=== PATIENT | female | born 1950 | race Caucasian/White ===

== ENCOUNTER 2016-09-25 09:51 | Emergency (ER) | payer BC ==
[2016-09-25 10:51] LABS: Hematocrit 38 % (35-47); Hemoglobin 13.1 g/dl (12.0-16.0); Mean Corpuscular HGB Conc 34 g/dl (31-36); Mean Corpuscular Hemoglobin 33 pg (27-31); Mean Corpuscular Volume 96 fL (80-97); Mean Platelet Volume 9 um3 (7.4-10.4); Red Blood Count 3.98 10^6/ul (4.0-5.4); Red Cell Distribution Width 13 % (10.5-15); White Blood Count 5.7 10^3/ul (3.5-10.8)
[2016-09-25 11:14] LABS: Albumin 3.9 g/dL (3.2-5.2); BUN/Creatinine Ratio 23.8 (8-20); C Reactive Protein 1.36 mg/L (< 5.00); Calcium 9.6 mg/dL (8.6-10.3); EGFR African American 91.7 (>60); EGFR Non-African American 71.3 (>60); Globulin 3.5 g/dL (2-4); Potassium 3.7 mmol/L (3.5-5.0); Total Bilirubin 0.4 mg/dL (0.2-1.0); Total Protein 7.4 g/dL (6.4-8.9)
--- NOTE | 2016-09-25 11:22 | RAD ---
Indication: Right flank pain. CT of the abdomen and pelvis was performed without oral or IV contrast. Coronal and sagittal reconstructed images were obtained. Fullness of the right renal collecting system is noted. Prominent right ureter is noted. There is a tiny calcification at the right ureterovesicular junction measuring 1 to 2 mm. The left kidney also demonstrates some mild fullness however No hydroureter is noted. The lung bases demonstrate no pleural fluid, nodules or masses. Heart is of normal size without evidence of pericardial effusion. Liver is normal in size. No focal lesions or intrahepatic biliary duct dilatation is noted. The common duct measures 9 mm likely due to postcholecystectomy state of the patient. Patient is status post cholecystectomy. The spleen is normal in size. No adrenal lesions are noted. No retroperitoneal adenopathy is noted. CT of the pelvis demonstrates no retroperitoneal or pelvic lymphadenopathy. Stool is present throughout the colon. The appendix is normal. No hernias are noted. IMPRESSION: Fullness of the right renal collecting system with a 1 to 2 mm calculus at the right ureterovesicular junction.
[2016-09-25 11:50] LABS: Urine Bacteria Absent (Absent); Urine Bilirubin Negative (Negative); Urine Glucose Negative (Negative); Urine Nitrite Negative (Negative)
--- NOTE | 2016-09-25 12:37 | ED ---
Erma Tong Matthew, scribed for Tone Kaplan MD on 09/25/16 at 1024 . Abdominal Pain/Female - HPI Summary HPI Summary: A 66 y/o female presents to the ED with gradually worsening, constant right flank pain since 09:00 today that relieved on the way to the hospital. The pain was rated 7/10 in severity and did not radiate. While urinating today, the patient stated she had less output then usual. Associated symptoms when the patient had pain include nausea and diaphoresis. She denies vomiting. Currently , the patient does not have anymore pain or associated symptoms. She had a BM this morning. - History of Current Complaint Chief Complaint: EDFlankPain Stated Complaint: BACK PAIN Time Seen by Provider: 09/25/16 10:14 Hx Obtained From: Patient ?: No Onset/Duration: Sudden Onset, Lasting Hours, Resolved Timing: Constant Severity Initially: Moderate Severity Currently: None Pain Intensity: 0 Pain Scale Used: 0-10 Numeric Location: Flank - RT Character: Sharp Associated Signs and Symptoms: Positive: Diaphoresis - since resolved, Urinary Symptoms - Slight decreased in urinary output, Nausea - since resolved Allergies/Adverse Reactions: Allergies Allergy/AdvReac Type Severity Reaction Status Date / Time No Known Allergies Allergy Verified 11/23/13 10:15 PMH/Surg Hx/FS Hx/Imm Hx Previously Healthy: No Respiratory History: Reports: Other Respiratory Problems/Disorders - DX PNEUMONIA 07.12.2014 Musculoskeletal History: Denies: Hx Osteoporosis - Cancer History Hx Chemotherapy: No Hx Radiation Therapy: No - Surgical History Surgery Procedure, Year, and Place: GB REMOVED Infectious Disease History: No Infectious Disease History: Reports: Hx Shingles Denies: Traveled Outside the [place] in Last 30 Days - Family History Family History: FHx of [place] - Social History Alcohol Use: None Substance Use Type: Reports: None Smoking Status (MU): Never Smoked Tobacco Review of Systems Positive: Skin Diaphoresis - since resolved Eyes: Negative ENT: Negative Cardiovascular: Negative Respiratory: Negative Positive: Abdominal Pain - right flank - since resolved, Nausea - since resolved Genitourinary: Negative Musculoskeletal: Negative Skin: Negative Neurological: Negative Psychological: Normal All Other Systems Reviewed And Are Negative: Yes Physical Exam - Summary Physical Exam Summary: VITAL SIGNS: Reviewed. GENERAL: Patient is a well developed and nourished female who is lying comfortable in the stretcher. Patient is not in any acute respiratory distress. HEAD AND FACE: Normocephalic and atraumatic. EYES: PERRLA, EOMI x 2, No injected conjunctiva. EARS: Hearing grossly intact. Ear canals and tympanic membranes are WNL. MOUTH: Oropharynx within normal limits. NECK: Supple, trachea is midline, no adenopathy, no JVD. CHEST: Symmetric, no tenderness at palpation LUNGS: Clear to auscultation bilaterally. No wheezing or crackles. CVS: RRR,, S1 and S2 present, no murmurs or gallops appreciated. ABDOMEN: Soft, non-tender. No signs of distention. Positive bowel sounds. No rebound no guarding, and no masses palpated. No abdominal bruit or pulsations. Positive right CVAT's EXTREMITIES: FROM in all major joints, no edema, no cyanosis or clubbing. NEURO: Alert and oriented x 3. No acute neurological deficits. Speech is normal. SKIN: Dry and warm Triage Information Reviewed: Yes Vital Signs On Initial Exam: Initial Vitals Temp Pulse Resp BP Pulse Ox 97.7 F 67 18 137/79 96 09/25/16 09:53 09/25/16 09:53 09/25/16 09:53 09/25/16 09:53 09/25/16 09:53 Vital Signs Reviewed: Yes - Alena Coma Scale Coma Scale Total: 15 Diagnostics - Vital Signs Vital Signs Temp Pulse Resp BP Pulse Ox 09/25/16 10:00 98.8 F 63 18 143/73 95 09/25/16 09:53 97.7 F 67 18 137/79 96 - Laboratory Result Diagrams: 09/25/16 10:30 09/25/16 10:30 Lab Statement: Any lab studies that have been ordered have been reviewed, and results considered in the medical decision making process. - CT A/P CT Interpretation: Positive (See Comments) - IMPRESSION: Fullness of the right renal collecting system with a 1 to 2 mm calculus at the right ureterovesicular junction. CT Interpretation Completed By: Radiologist Abdominal Pain Fem Course/Dx - Course Course Of Treatment: A 66 y/o female presents to the ED with gradually worsening , constant right flank pain since 09:00 today that relieved on the way to the hospital. The pain was rated 7/10 in severity and did not radiate. While urinating today, the patient stated she had less output than usual. Associated symptoms when the patient had pain include nausea and diaphoresis. She denies vomiting. Currently, the patient does not have any more pain or associated symptoms. She had a BM this morning. Blood work WNL, urinalysis shows no UTI. A/P CT shows 1-2mm kidney stone. In the ED course, the patient was given IV fluids. She did not require anything for pain. At this point the patient continues to be asymptomatic. Therefore she will be discharged home. Th patient was counseled to return to the ED if she develops increase in pain, nausea, vomiting, or fever. The patient understands and agrees. - Diagnoses Differential Diagnosis: Positive: Appendicitis, Constipation, Diverticulitis, Renal Colic, Urinary Tract Infection Provider Diagnoses: Ureter colic, Kidney stone on right side Discharge - Discharge Plan Condition: Stable Disposition: HOME Prescriptions: Naproxen TAB* [Naprosyn TAB*] 500 mg PO Q8H PRN #20 tab PRN Reason: Pain Naproxen TAB* [Naprosyn TAB*] 375 mg PO BID PRN #20 tab PRN Reason: Pain Patient Education Materials: Naproxen (By mouth), Kidney Stones (ED) Referrals: Morena Christopher NP [Primary Care Provider] - 3 Days Additional Instructions: Please follow-up with your primary care physician. The documentation as recorded by the Erma aponte Matthew accurately reflects the service I personally performed and the decisions made by , Tone Kaplan MD.
[2016-09-25 13:22] VITALS: BP 99/48
== END 2016-09-25 13:21 | disposition home or self-care (01) ==
LOC: ED 09:51
DX: N23 Unspecified renal colic (principal); N20.0 Calculus of kidney; R10.84 Generalized abdominal pain; R11.0 Nausea
CPT/HCPCS: 36415; 74176; 80053; 81003; 81015; 82150; 83605; 83690; 83880; 85025; 86140; 99283

== ENCOUNTER → 2016-11-05 06:30 | Day surgery (SDC) | payer BC ==
[~2016-11-05 06:30] MED LIST: Acetaminophen TAB* 325 MG PO PRN; Buffered Lidocaine 1% SYRIN* 3 ML/SYR SYRINGE INTRADERM ONE; Bupivacaine 0.5% SDV PF* 30 ML VIAL ONE; Dexamethasone IV* 4 MG/ML 1 ML (4 MG) ONE; DiMENhydriNATE IV* 50 MG/ML VIAL IV PUSH PRN; Famotidine IV* 10 MG/ML 2 ML (20 mg) ONE; HYDROcodone/ACETAMIN 5-325 MG* 1 TAB PO PRN; HYDROmorphone* 1 MG/ML 1 ML SYR IV PRN; KETAMINE HCL* 50 MG/ML 10 ML VIAL ONE; Ketorolac INJ* 30 MG/ML 1 ML VIAL ONE; Lidocaine 1% INJ* 10 MG/ML 30 ML SDV ONE; Lidocaine 2% PF* 5 ML VIAL ONE; Midazolam* 1 MG/ML 2 ML VIAL (2 MG) ONE; Ondansetron INJ* 2 MG/ML VIAL IV PRN; PROCHLORPERAZINE INJ 5 MG/ML 2 ML VIAL IV PRN; Propofol* 10 MG/ML 20 ML BTL IV PUSH ONE; ceFAZolin 2 GM PREMIX(*) 2 GM/50 ML BAG IVPB ONE; fentaNYL* 50 MCG/ML 2 ML VIAL (100 MCG VIAL) ONE
[2016-11-05 09:12] VITALS: BP 147/81
--- NOTE | 2016-11-06 01:06 | OP ---
DATE OF OPERATION: 11/05/16 - [facility] DATE OF : 46 SURGEON: Von Nolan DPM REAL ESTATE LEGAL ASSISTANT: None. ANESTHESIOLOGIST: Dr. Gordon ANESTHESIA: MAC with local. PRE-OP DIAGNOSIS: Painful hallux rigidus, right foot. POST-OP DIAGNOSIS: Painful hallux rigidus, right foot. OPERATIVE PROCEDURE: Cheilectomy with right great toe joint. PATHOLOGY: Degenerated bone. HEMOSTASIS: Pneumatic ankle tourniquet. ESTIMATED BLOOD LOSS: Less than 5 cc. INDICATIONS: The patient with chronic and progressive pain, stiffness, and osteophyte proliferation about the right great toe making painful to walk and wear shoes. DESCRIPTION OF PROCEDURE: The patient was brought to the operating room, placed on the operating room table in the supine position. The anesthesia department administered IV sedation and a peripheral nerve block was performed about the right forefoot with a 1:1 mixture of 1% lidocaine plain and 0.5% Marcaine plain. The right foot was prepped and draped in the usual fashion. The right foot was then exsanguinated with an Esmarch bandage and the pneumatic ankle tourniquet was inflated to 250 mmHg about a well-padded right ankle. Attention was directed to the dorsal medial aspect of the right great toe joint , where a linear incision was made. The incision was deepened through subcutaneous tissue with care being taken to retract neurovascular structures and cauterize superficial bleeders as needed. Linear capsular and periosteal incision was made to allow for exposure of the great toe joint. There was noted to be hypertrophic bone at the dorsal aspect of the proximal phalanx as well as the first metatarsal head. There was also noted to be a full-thickness circular area of erosions at the dorsal central aspect of the first metatarsal head, measuring approximately 1.0 cm. Using a sagittal saw and rongeur, the hypertrophic bone and osteophytes were resected from the first metatarsal head as well as the base of the proximal phalanx. A power bur was used to smooth hypertrophic rough areas. The surgical site was flushed with copious amounts of normal sterile saline. Next, using a 0.6 mm smooth K-wire to fenestrate the defect in the first metatarsal head to bleeding subchondral bone. Again, the surgical site was flushed with copious amounts of normal sterile saline. There was noted to be significant improvement in the range of motion of the great toe joint. The periosteal and capsular tissues were reapproximated and secured with 2-0 Polysorb, subcutaneous tissues were approximated with 4-0 Polysorb, and skin was reapproximated with 5-0 nylon. 12 mg of dexamethasone phosphate was infiltrated about the surgical site and the surgical site was dressed with Xeroform gauze, Olga, and a light Coban wrap. The pneumatic ankle tourniquet was deflated about the right ankle and a prompt hyperemic response was noted about all 5 digits of the patient's right foot. Having appeared to tolerate the procedure and anesthesia well, the patient was transported via cart from the operating room to Recovery in satisfactory condition with capillary refill less than 3 seconds to all digits of the right foot. [id number] #: [id number] MTDD
== END | disposition home or self-care (01) ==
LOC: OREAST 06:30
PROVIDERS: ATTEND Podiatrist Foot Surgery
DX: M20.21 Hallux rigidus, right foot (principal)
CPT/HCPCS: 88304; 88311; J0690; J1100; J1885; J2001; J2250; J2704; J3010

== ENCOUNTER 2018-05-27 09:58 | Day surgery (SDC) | payer BC ==
[~2018-05-27 09:58] MED LIST changes: -Acetaminophen TAB* 325 MG PO PRN; +Buffered Lidocaine 0.9% SYRIN* 5 ML/SYR SYRINGE INTRADERM ONE; -Buffered Lidocaine 1% SYRIN* 3 ML/SYR SYRINGE INTRADERM ONE; -Bupivacaine 0.5% SDV PF* 30 ML VIAL ONE; -Dexamethasone IV* 4 MG/ML 1 ML (4 MG) ONE; -DiMENhydriNATE IV* 50 MG/ML VIAL IV PUSH PRN; +Famotidine IV* 10 MG/ML 2 ML (20 mg) IV ONE; -Famotidine IV* 10 MG/ML 2 ML (20 mg) ONE; -HYDROcodone/ACETAMIN 5-325 MG* 1 TAB PO PRN; -HYDROmorphone* 1 MG/ML 1 ML SYR IV PRN; -KETAMINE HCL* 50 MG/ML 10 ML VIAL ONE; -Ketorolac INJ* 30 MG/ML 1 ML VIAL ONE; -Lidocaine 2% PF* 5 ML VIAL ONE; -Midazolam* 1 MG/ML 2 ML VIAL (2 MG) ONE; -Ondansetron INJ* 2 MG/ML VIAL IV PRN; -PROCHLORPERAZINE INJ 5 MG/ML 2 ML VIAL IV PRN; -Propofol* 10 MG/ML 20 ML BTL IV PUSH ONE; -ceFAZolin 2 GM PREMIX(*) 2 GM/50 ML BAG IVPB ONE; -fentaNYL* 50 MCG/ML 2 ML VIAL (100 MCG VIAL) ONE
[2018-05-27] MEDS ORDERED: Famotidine IV* 10 MG/ML 2 ML (20 mg) ONE (10:22)
[2018-05-27] MEDS ORDERED: Midazolam* 1 MG/ML 5 ML VIAL (5 MG) ONE (11:00)
[2018-05-27] MEDS ORDERED: fentaNYL* 50 MCG/ML 2 ML VIAL (100 MCG VIAL) ONE (11:00)
[2018-05-27] MEDS ORDERED: DiMENhydriNATE IV* 50 MG/ML VIAL IV PUSH PRN (11:46)
[2018-05-27] MEDS ORDERED: Acetaminophen TAB* 325 MG PO PRN (11:46)
[2018-05-27] MEDS ORDERED: Ondansetron INJ* 2 MG/ML VIAL ONE (12:05)
[2018-05-27] MEDS ORDERED: Lidocaine 2% PF * 5 ML VIAL ONE (12:05)
[2018-05-27] MEDS ORDERED: Propofol* 10 MG/ML 20 ML BTL IV PUSH ONE ×2 (12:05→12:20)
[2018-05-27] MEDS ORDERED: Ketorolac INJ* 30 MG/ML 1 ML VIAL ONE (12:05)
[2018-05-27 12:31] VITALS: BP 128/75
--- NOTE | 2018-05-28 04:44 | OP ---
DATE OF OPERATION: 05/27/18 [facility] DATE OF : 46 SURGEON: Shandra Franco MD. CAMPUS AIDE: FRANK Mayorga. ANESTHESIA: Local MAC. PRE-OP DIAGNOSIS: Trigger fingers of the left thumb and long finger. POST-OP DIAGNOSIS: Trigger fingers of the left thumb and long finger. OPERATIVE PROCEDURE: Trigger release, left thumb and long finger. ESTIMATED BLOOD LOSS: Zero. TOURNIQUET TIME: Approximately 15 minutes. 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 She presents for a trigger finger releases. DESCRIPTION OF PROCEDURE: The patient was brought to the operating room, was given a sedation anesthetic and a local infiltration 10 cc of 1% plain lidocaine overlying the A1 yousif of the thumb and middle finger. Skin of her left hand and forearm was prepped and draped in the usual sterile fashion. The hand and forearm were exsanguinated and the tourniquet was elevated to 250 mmHg. A transverse incision was then made centered over the A1 yousif of the thumb. We dissected through the subcutaneous tissue. The digital neurovascular bundles were retracted by the surgical orderly, Cate Lee. The A1 yousif was incised longitudinally completely releasing the flexor tendon, which had a mild abrasion, but was intact. The wound was irrigated and the skin edges reapproximated with 4-0 nylon suture. Next, a transverse incision was made, centered over the A1 yousif of the middle finger. The digital neurovascular bundles were dissected out and retracted by the surgical orderly. The A1 yousif was incised longitudinally completely releasing the flexor tendons, which had again a mild abrasion, but were intact. The wound was irrigated and skin edges reapproximated with 4-0 nylon suture. The wounds were dressed with Xeroform, 4x4, Webril, and an Ambrose wrap. The patient tolerated the procedure well and was brought to the recovery room in good condition. [id number]/CPS #: [id number] MTDD
== END 2018-05-27 12:50 | disposition home or self-care (01) ==
LOC: OREAST 09:58
PROVIDERS: ATTEND Orthopaedic Surgery
DX: M65.332 Trigger finger, left middle finger (principal); M65.312 Trigger thumb, left thumb; E78.5 Hyperlipidemia, unspecified; L93.1 Subacute cutaneous lupus erythematosus
CPT/HCPCS: J1885; J2250; J2405; J2704; J3010

== ENCOUNTER 2019-11-21 17:10 | Emergency (ER) | payer BC ==
[2019-11-21] MEDS ORDERED: DOXYcycline 100 mg CAP (*) PO ONE (17:31)
[2019-11-21 17:41] VITALS: BP 130/96
== END 2019-11-21 17:42 | disposition home or self-care (01) ==
LOC: ED 17:10